=== PATIENT | female | born 1980 | race Two or more races ===

== ENCOUNTER 2018-07-26 10:18 | Emergency (ER) | payer OTHER ==
[~2018-07-26] VITALS: Ht 162.6 cm; Wt 81.6 kg
[2018-07-26] VITALS (11 sets, daily range): BP systolic 113–144; BP diastolic 65–83
[2018-07-26 10:52] LABS: Basophils # (auto) 0.1 uL; Basophils % (auto) 0.4 % (0.0-2.0); Eosinophils # (auto) 0 uL; Monocytes # (auto) 0.5 uL; Monocytes % (auto) 3.1 % (0.0-12.0)
[2018-07-26 10:55] LABS: Hematocrit 25.9 % (36.0-46.0); Hemoglobin 7.8 g/dL (12.2-16.2); Lymphocytes % (auto) 6.3 % (10.0-50.0); Mean Corpuscular Hemoglobin 22.7 pg (28.0-32.0); Mean Corpuscular Hgb Conc. 30.2 g/dL (32.0-36.0); Mean Corpuscular Volume 74.9 fL (80.0-100.0); Neutrophils % (auto) 90.2 % (37.0-80.0); Platelet Count (auto) 661 10^3/uL (140-450); Red Blood Cells 3.45 10^6/uL (4.0-5.20); Red Cell Distribution Width 15.3 % (11.8-14.3); White Blood Cell 16.6 10^3/uL (4.4-10.8)
[2018-07-26 11:04] LABS: INR 0.92 (0.9-1.15); Partial Thromboplastin Time 34.7 sec (23.64-32.05)
[2018-07-26 11:15] LABS: Albumin 2.7 g/dL (3.4-5.0); Potassium 4.2 mmol/L (3.5-5.1)
[2018-07-26 11:18] LABS: Bilirubin, Total 0.5 mg/dL (0.2-1.0)
[2018-07-26 11:28] LABS: Urine Bacteria NONE SEEN /hpf (None Seen); Urine Blood Negative /uL (Negative); Urine Specific Gravity 1.025 (1.001-1.035); Urine WBC 1 /hpf (0 - 5)
[2018-07-26] MEDS ORDERED: SODIUM CHLORIDE 0.9% 1,000 ML IV ONE (13:00)
[2018-07-26 13:30] LABS: BUN/Creatinine Ratio 0.7
[2018-07-26 18:18] LABS: Basophils # (auto) 0.1 uL; Eosinophils # (auto) 0 uL; Eosinophils % (auto) 0.2 % (0.0-7.0); Hemoglobin 9.9 g/dL (12.2-16.2); White Blood Cell 14.6 10^3/uL (4.4-10.8)
[2018-07-26 18:21] LABS: Basophils % (auto) 0.6 % (0.0-2.0); Hematocrit 30.9 % (36.0-46.0); Lymphocytes # (auto) 1.7 uL; Mean Corpuscular Hemoglobin 25.2 pg (28.0-32.0); Mean Corpuscular Hgb Conc. 32.1 g/dL (32.0-36.0); Mean Corpuscular Volume 78.6 fL (80.0-100.0); Monocytes # (auto) 0.8 uL; Monocytes % (auto) 5.3 % (0.0-12.0); Neutrophils % (auto) 81.9 % (37.0-80.0); Platelet Count (auto) 530 10^3/uL (140-450); Red Blood Cells 3.93 10^6/uL (4.0-5.20); Red Cell Distribution Width 17.7 % (11.8-14.3)
== END 2018-07-26 18:52 | disposition home or self-care (01) ==
LOC: ER 10:23
DX: N93.9 Abnormal uterine and vaginal bleeding, unspecified (principal); D25.9 Leiomyoma of uterus, unspecified; D50.0 Iron deficiency anemia secondary to blood loss (chronic); E11.65 Type 2 diabetes mellitus with hyperglycemia; E11.21 Type 2 diabetes mellitus with diabetic nephropathy; D72.828 Other elevated white blood cell count; E46 Unspecified protein-calorie malnutrition; Z68.30 Body mass index [BMI] 30.0-30.9, adult
CPT/HCPCS: 36415; 36430; 76856; 80053; 81001; 82962; 84702; 85025; 85610; 85730; 86850; 86900; 86901; 86920; 96360; 99284; J7030; P9016

== ENCOUNTER 2018-08-01 11:53 | Emergency (ER) | payer OTHER ==
[~2018-08-01] VITALS: Ht 162.6 cm; Wt 81.6 kg
[2018-08-01 12:03] VITALS: BP 119/81
== END 2018-08-01 13:28 | disposition home or self-care (01) ==
LOC: ER 11:59
DX: M79.642 Pain in left hand (principal); E11.9 Type 2 diabetes mellitus without complications; K21.9 Gastro-esophageal reflux disease without esophagitis; Z87.442 Personal history of urinary calculi
CPT/HCPCS: 73130